=== PATIENT | female | born 1980 | race Hispanic/Latino ===

== ENCOUNTER 2021-02-18 12:09 | Outpatient (CLI) | payer OTHER ==
[2021-02-19 10:36] LABS: SARS-CoV-2 PCR by NAA Not Detected (NotDetected)
== END 2021-02-18 12:10 | disposition home or self-care (01) ==
LOC: CSHLAB 12:09
PROVIDERS: ATTEND Family Medicine
DX: Z20.822 Contact with and (suspected) exposure to COVID-19 (principal)
CPT/HCPCS: U0003; U0005

== ENCOUNTER 2021-02-22 19:30 | Inpatient (IN) | payer MEDICAID, OTHER, SELFPAY ==
[2021-02-22] MEDS ORDERED: hydrALAZINE 20 MG/ML VIAL SLOW IVP PRN (23:11)
[2021-02-22] MEDS ORDERED: Promethazine HCl 25 MG/ML VIAL IM PRN (23:11)
[2021-02-22] MEDS ORDERED: Ondansetron PF 4 MG/2 ML Vial IVP PRN (23:11)
[2021-02-22] MEDS ORDERED: Penicillin G Potassium 5 MILL.UNITS in Sodium Chloride 0.9% 100 ML IVPB SCH (23:11)
[2021-02-22] MEDS ORDERED: Diphenoxylate HCl/Atropine Tablet PO PRN (23:11)
[2021-02-22] MEDS ORDERED: Carboprost 250 MCG/ML AMP IM PRN (23:11)
[2021-02-22] MEDS ORDERED: HYDROcodone/Acetaminophen 5/325 mg Tablet PO PRN (23:11)
[2021-02-22] MEDS ORDERED: Acetaminophen 500 MG TAB PO PRN (23:11)
[2021-02-22] MEDS ORDERED: Methylergonovine 0.2 MG/ML VIAL IM PRN (23:11)
[2021-02-22] MEDS ORDERED: Misoprostol 200 MCG TAB PR PRN (23:11)
[2021-02-22] MEDS ORDERED: Butorphanol Tartrate 1 MG/ML VIAL SLOW IVP PRN (23:11)
[2021-02-22] MEDS ORDERED: Ibuprofen 800 MG TAB PO PRN (23:11)
[2021-02-22] MEDS ORDERED: Lidocaine 1% (PF) 30 ML VIAL SC PRN (23:11)
[2021-02-22 23:29] VITALS: BMI 44.9
[2021-02-22] MEDS: Penicillin G 2.5 MILL.units 2.5 MILL.UNITS in Premix Bag 1 BAG IVPB SCH (23:30)
[2021-02-22] MEDS: Lactated Ringer's 1,000 ML IV SCH (23:40)
[2021-02-22 23:54] LABS: Hemoglobin 11.4 g/dL (12.0-15.5); Mean Corpuscular HGB CONC 33.1 g/dL (32.0-36.0); Mean Corpuscular Volume 84.5 fl (81.6-98.3); Mean Platelet Volume 12.2 fl (7.4-10.4); Platelet Count 165 10x3/uL (150-450); RBC Distribution Width 14.6 % (11.5-14.5); Red Blood Cell (RBC) Count 4.07 10x6/uL (3.90-5.03); White Blood Cell (WBC) Count 8.1 10x3/uL (3.5-10.5)
[2021-02-23] MEDS: Misoprostol 100 MCG TAB PO SCH ×3 (00:20→16:25)
[2021-02-23 00:25] LABS: Syphilis Antibody Nonreactive (Nonreactive); Syphilis Antibody Index 0.03 S/CO (<1.00 Non-Reactive)
[2021-02-23 00:26] LABS: Hep B Surf Ag Non-Reactive S/CO (NonReactive)
[2021-02-23 00:37] LABS: HBSAg Index 0.14 S/CO (0-0.99)
[2021-02-23] MEDS: Penicillin G 2.5 MILL.units 2.5 MILL.UNITS in Premix Bag 1 BAG IVPB SCH ×4 (04:22→16:20)
[2021-02-23] MEDS: NS w/ Oxytocin 30 units 500 ML IV SCH ×2 (07:11→19:54)
[2021-02-23] MEDS: Lactated Ringer's 1,000 ML IV SCH ×3 (07:27→17:05)
[2021-02-23] MEDS ORDERED: Fentanyl 2 mcg/Bup 0.1% Cadd 100 ML ONE (07:33)
[2021-02-23] MEDS ORDERED: Naloxone HCl 0.4 mg/ml Vial IVP PRN ×2 (11:32)
[2021-02-23] MEDS ORDERED: ePHEDrine Sulfate 50 MG/10 ML VIAL SLOW IVP PRN (11:32)
[2021-02-23] MEDS ORDERED: diphenhydrAMINE 50 MG/ML VIAL IVP PRN (11:32)
[2021-02-23] MEDS ORDERED: Hydrocerin (Eucerin) Cream 120 gm Jar TOP PRN (11:32)
[2021-02-23] MEDS ORDERED: Acetaminophen 325 MG TAB PO PRN (11:32)
[2021-02-23] MEDS ORDERED: Promethazine HCl 25 MG/ML VIAL IM PRN ×2 (11:32→21:41)
[2021-02-23] MEDS ORDERED: Ondansetron PF 4 MG/2 ML Vial IVP PRN ×2 (11:32→21:41)
[2021-02-23] MEDS ORDERED: Lactated Ringer's 500 ML IV PRN (11:32)
[2021-02-23] MEDS ORDERED: Communication Order-Pharmacy FS SCH (11:45)
[2021-02-23] MEDS ORDERED: Fentanyl 2 mcg/Bupivacaine 0.1% Cassette 100 ML EPIDURAL SCH (11:45)
[2021-02-23] MEDS ORDERED: ePHEDrine Sulfate 50 MG/10 ML VIAL ONE (14:14)
[2021-02-23] MEDS ORDERED: Bupivacaine 0.25% HCL 30 ML VIAL ONE (14:14)
[2021-02-23] MEDS ORDERED: Boostrix 0.5 ML (Tdap) VIAL IM ONE (21:41)
[2021-02-23] MEDS ORDERED: hydrALAZINE 20 MG/ML VIAL SLOW IVP PRN (21:41)
[2021-02-23] MEDS ORDERED: Benzocaine-Menthol 82.5 ML CAN TOP PRN (21:41)
[2021-02-23] MEDS ORDERED: Milk Of Magnesia 30 ML UDCUP PO PRN (21:41)
[2021-02-23] MEDS ORDERED: Lanolin Ointment 7 GM TUBE TOP PRN (21:41)
[2021-02-23] MEDS ORDERED: diphenhydrAMINE 25 MG CAP PO PRN (21:41)
[2021-02-23] MEDS ORDERED: NS w/ Oxytocin 30 units 500 ML IV SCH (21:41)
[2021-02-23] MEDS ORDERED: Bisacodyl 10 MG SUPP PR PRN (21:41)
[2021-02-23] MEDS ORDERED: Preparation H Ointment 28 GM TUBE PR PRN (21:41)
[2021-02-23] MEDS ORDERED: Ibuprofen 800 MG TAB PO SCH (22:00)
[2021-02-23] MEDS: HYDROcodone/Acetaminophen 5/325 mg Tablet PO PRN (22:08)
[2021-02-24] MEDS: HYDROcodone/Acetaminophen 5/325 mg Tablet PO PRN ×3 (02:21→15:24)
[2021-02-24] MEDS: Ibuprofen 800 MG TAB PO SCH ×3 (04:52→22:17)
[2021-02-24] MEDS: Prenatal Vitamin 1 TAB PO SCH (07:57)
[2021-02-24] MEDS: Ferrous Sulfate 325 MG TAB PO SCH ×2 (07:57→17:33)
[2021-02-24] MEDS: Docusate Calcium (SURFAK) 240 MG CAP PO SCH ×2 (07:57→22:17)
[2021-02-24] MEDS: Penicillin G 2.5 MILL.units 2.5 MILL.UNITS in Premix Bag 1 BAG IVPB SCH (08:39)
[2021-02-25] MEDS: HYDROcodone/Acetaminophen 5/325 mg Tablet PO PRN ×3 (00:10→15:42)
[2021-02-25] MEDS: Ibuprofen 800 MG TAB PO SCH (05:58)
[2021-02-25 08:07] VITALS: BP 118/56; TEMP 97.9
[2021-02-25] MEDS: Prenatal Vitamin 1 TAB PO SCH (09:03)
[2021-02-25] MEDS: Docusate Calcium (SURFAK) 240 MG CAP PO SCH (09:03)
[2021-02-25] MEDS: Ferrous Sulfate 325 MG TAB PO SCH (09:04)
== END 2021-02-25 15:55 | disposition home or self-care (01) | DRG 807 ==
LOC: CSHLD 23:03 → CSHPP 02-24 05:45 → CSHLD 02-24 06:08 → CSHPP 02-24 07:00
PROVIDERS: ADMIT Family Medicine; ATTEND Family Medicine
PROC: 10E0XZZ Delivery of Products of Conception, External Approach (ICD-10-PCS; principal; 2021-02-23)
PROC: 0KQM0ZZ Repair Perineum Muscle, Open Approach (ICD-10-PCS; 2021-02-23)
PROC: 10907ZC Drainage of Amniotic Fluid, Therapeutic from Products of Conception, Via Natural or Artificial Opening (ICD-10-PCS; 2021-02-23)
PROC: 3E033VJ Introduction of Other Hormone into Peripheral Vein, Percutaneous Approach (ICD-10-PCS; 2021-02-23)
DX: O99.824 Streptococcus B carrier state complicating childbirth (principal); Z37.0 Single live birth; O70.1 Second degree perineal laceration during delivery; Z3A.39 39 weeks gestation of pregnancy
CPT/HCPCS: 36415; 51702; 85027; 86780; 86850; 86900; 86901; 87340; J2405; J2540; J2590; J3490; J7120; S0020